=== PATIENT | male | born 1990 | race Caucasian/White ===

== ENCOUNTER 2022-01-19 21:10 | Emergency (ER) | payer MEDICAID ==
[~2022-01-19] VITALS: Ht 175.3 cm; Wt 65.8 kg
[2022-01-19 21:10] VITALS: BP 127/94
--- NOTE | 2022-01-19 21:10 | NUR ---
PT DEE BLS. TAKEN TO BED 5
--- NOTE | 2022-01-19 21:25 | NUR ---
PT'S BELONGINGS GATHERED AND COLLECTED BY GENIA.
--- NOTE | 2022-01-19 21:30 | NUR ---
BELONGINGS REMOVED AND PT GOWNED. BED LOCK AND LOW, SIDE RAILS UP, URINAL AT BEDSIDE.
--- NOTE | 2022-01-19 21:54 | NUR ---
PT IS LAYING ON BED AND THREW A URINAL AT POLICE OFFICERS AT THE NURSING STATION. BEHAVIOR WAS UNPROVOKE. PT ASK WHY HE THREW A URINAL AT THE POLICE, PT STATED "JUST BECAUSE...W/ EXPLICIT LANGUAGE". PT WAS INFORMED THAT THE POLICE OFFICERS ARE NOT HERE FOR HIM. PT STATED "YES I KNOW". PT INSTRUCTED THAT THIS BEHAVIOR IS NOT ACCEPTABLE. PT THEN TOOK THE CHAIR BESIDE HIM AND STARTED LIFTING IT ABOVE HIS HEAD POSTURING TO HURT HIMSELF AND THE POLICE. CHAIR WAS REMOVED AND TABLE AT BEDSIDE. IMMEDIATE VICINITY IS CLEARED OF OBJECTS. BED LOCK AND LOW, WITH SIDE RAILS UP. WILL CONTINUE TO VISUALIZE PT.
--- NOTE | 2022-01-19 22:11 | NUR ---
Dr. Luciano examining patient.
--- NOTE | 2022-01-19 22:15 | NUR ---
SNACKS AND WATER PROVIDED TO PT.
--- NOTE | 2022-01-19 22:47 | NUR ---
JOANN AND NOVEL SWAB, AND BLOOD WORK DONE AND GIVEN TO STAMPING MACHINE OPERATOR.
--- NOTE | 2022-01-19 23:06 | NUR ---
PT GIVEN ANOTHER SANDWHICH AND SODA.
[2022-01-19 23:07] LABS: BASOPHILS # (AUTO) 0.1 K/uL (0.00-0.22); BASOPHILS % (AUTO) 0.8 % (0.0-2.0); EOSINOPHILS # (AUTO) 0.1 K/uL (0-0.4); EOSINOPHILS % (AUTO) 0.6 % (0.0-4.0); HEMATOCRIT 38.1 % (36-52); HEMOGLOBIN 12.8 g/dL (12.0-18.0); LYMPHOCYTES # (AUTO) 2.3 K/uL (2.0-11.5); LYMPHOCYTES % (AUTO) 25.9 % (20.5-51.1); MEAN CORPUSCULAR HEMOGLOBIN 31 pg (27-31); MEAN CORPUSCULAR HGB CONC 34 g/dL (33-37); MEAN CORPUSCULAR VOLUME 92.1 fL (80-94); MONOCYTES # (AUTO) 1.1 K/uL (0.8-1.0); MONOCYTES % (AUTO) 12.1 % (1.7-9.3); NEUTROPHILS # (AUTO) 5.4 K/uL (1.8-7.7); NEUTROPHILS % (AUTO) 60.6 % (42.2-75.2); PLATELET COUNT (AUTO) 168 K/uL (140-450); RED BLOOD CELL COUNT(AUTO) 4.13 MIL/uL (4.20-6.10); RED CELL DISTRIBUTION WIDTH 13.4 % (11.6-13.7); WHITE BLOOD COUNT (AUTO) 8.9 K/uL (4.8-10.8)
[2022-01-19 23:31] LABS: ALBUMIN 3.1 g/dL (3.4-5.0); ANION GAP 12.3 (8-16); ASPARTATE AMINOTRANSFERASE 23 U/L (15-37); CARBON DIOXIDE 27.2 mmol/L (21-32); CHLORIDE 105 mmol/L (98-107); CREATININE 0.9 mg/dL (0.6-1.3); GFR ARICAN-AMERICAN 126 mL/min (>90); GLUCOSE 136 mg/dL (74-106); POTASSIUM 3.5 mmol/L (3.5-5.1); SODIUM SERUM 141 mmol/L (136-145); TOTAL BILIRUBIN 0.3 mg/dL (0.0-1.0); UREA NITROGEN, BLOOD 25 mg/dL (7-18)
[2022-01-19 23:32] LABS: ACETAMINOPHEN < 0.5 ug/ml (10-30); SALICYLATE < 2.8 mg/dL (2.8-20.0)
--- NOTE | 2022-01-19 23:39 | NUR ---
SNACKS AND WATER GIVEN TO PT.
--- NOTE | 2022-01-20 00:10 | NUR ---
PT IS AWAKE. CALM AND COOPERATIVE. NO SIGN OF DISTRESS.
[2022-01-20 00:15] LABS: BARBITURATE, URINE NEGATIVE ng/ml (NEG <=200); BENZODIAZEPINE, URINE NEGATIVE ng/mL (NEG <=200); CANNABINOID, URINE POSITIVE ng/mL (NEG <=50); COCAINE, URINE POSITIVE ng/mL (NEG <=300); OPIATE, URINE NEGATIVE ng/mL (NEG <=2000); PHENCYCLIDINE SCREEN,URINE NEGATIVE ng/mL (NEG <=25)
--- NOTE | 2022-01-20 01:23 | NUR ---
PT AWAKE. SLIGHTLY ANXIOUS, COOPERATIVE. SNACKS AND DRINKS PROVIDED.
--- NOTE | 2022-01-20 02:34 | NUR ---
PT AWAKE. EATING. NO SIGN OF DISTRESS.
--- NOTE | 2022-01-20 03:05 | NUR ---
SLEEPING. CHEST RISE PRESENT. SIDE RAILS UP, BED LOCK AND LOW.
--- NOTE | 2022-01-20 07:12 | NUR ---
HANDOFF TO [facility]. PT IS AWAKE. COOPERATIVE. VSS.
--- NOTE | 2022-01-20 08:42 | NUR ---
pt eating second regular diet tray at this time. pt within view of nursing station, slightly restless.
--- NOTE | 2022-01-20 09:10 | NUR ---
pt speaking with telepsych md maritza brewster at this time
--- NOTE | 2022-01-20 09:26 | NUR ---
md salas verbal order to continue 5150 order as well as zyprexa 10mg im/po bid, depakote 5mg po bid, haldol im/po q 6 hours prn for agitation, benadryl 50mg im/po q 6 hours prn for agitation.
[2022-01-20] MEDS ORDERED: diphenhydrAMINE 50 MG/ML VIAL IM PRN (09:30)
[2022-01-20] MEDS ORDERED: HALOPERIDOL IM 5 MG/ML VIAL IM PRN (09:30)
[2022-01-20] MEDS ORDERED: HALOPERIDOL 5 MG TAB PO PRN (10:05)
--- NOTE | 2022-01-20 10:05 | NUR ---
PT PLACED ON 5150 HOLD FOR DTS. HOLD WRITTEN BY BOW MAKER GIFT WRAPPING, RICHARD JONES. [address]
[2022-01-20] MEDS ORDERED: diphenhydrAMINE 50 MG CAP PO PRN (10:10)
--- NOTE | 2022-01-20 10:28 | NUR ---
PT MEDICALLY CLEARED BY DR CHAVARRIA
--- NOTE | 2022-01-20 10:56 | NUR ---
security at bedside for ekg, pt was found touching self and refused to stop when asked.
[2022-01-20] MEDS ORDERED: LORazepam 2 MG/ML VIAL ONE (11:09)
[2022-01-20] MEDS ORDERED: LORazepam 2 MG/ML VIAL IM ONE ×2 (11:10→11:15)
--- NOTE | 2022-01-20 11:12 | NUR ---
PT BECAME VERY AGGRESSIVE WHEN SECURITY WAS AT BEDSIDE AND HIT BAGGAGE CLERK. PT MEDICATED PER MD ORDER. SECURITY, CO CHAIRMAN, MALE EVS WORKER AT BEDSIDE ASSISTING PRIMARY RN.
--- NOTE | 2022-01-20 11:25 | NUR ---
novel swabbed at this time and sent to lab
--- NOTE | 2022-01-20 11:59 | NUR ---
Patient appears to be resting comfortably in bed. Respirations even and unlabored.
--- NOTE | 2022-01-20 14:56 | NUR ---
linens changed at this time, pt does not wish to change into new underwear
--- NOTE | 2022-01-20 17:24 | NUR ---
Patient appears to be resting comfortably in bed. Vital Signs within normal limits. Respirations even and unlabored.
--- NOTE | 2022-01-20 18:46 | NUR ---
pt ambulated to bathroom with even and steady gait at this time. Patient appears to be resting comfortably in bed. Vital Signs within normal limits. Respirations even and unlabored.
--- NOTE | 2022-01-20 19:17 | NUR ---
Pt report given to zulay ndiaye. Transfer of care at this time.
--- NOTE | 2022-01-20 19:47 | NUR ---
PT ASLEEP RESTING ; COMFORTABLE. REPORT TAKEN FROM GEORGE JONES.
--- NOTE | 2022-01-20 20:18 | NUR ---
PT IS RESTING AND ASLEEP AND COMFORTABLE
[2022-01-20] MEDS ORDERED: OLANZapine 5 MG ODT PO SCH (21:00)
[2022-01-20] MEDS: DIVALPROEX 500 MG TABEC PO SCH (21:01)
[2022-01-20] MEDS: OLANZapine 5 MG TAB PO SCH (21:02)
--- NOTE | 2022-01-20 21:03 | NUR ---
2100 MEDS GIVEN AND TOLERATED. PT IN BED WITH SIDE RAILS UP. FOOD GIVEN TO PATIENT
--- NOTE | 2022-01-20 22:11 | NUR ---
PT RESTING ; IN BED ASLEEP. Q15 SI PRECAUTIONS BEING DONE.
--- NOTE | 2022-01-20 23:00 | NUR ---
PT RESTING ; ASLEEP. SIDE RAILS UP
--- NOTE | 2022-01-20 23:49 | NUR ---
[facility] CALLED AND ASKED FOR OTHER SIDE OF 5150 HOLD
--- NOTE | 2022-01-20 23:53 | NUR ---
EMERGENCY MEDICAL TO BE ARRANGED WHEN PATIENT IS AWAKE
--- NOTE | 2022-01-21 03:13 | NUR ---
PT AWAKE ; FOOD PROVIDED. PT IS CALM, RESTING IN BED WITH SIDE RAILS UP.
--- NOTE | 2022-01-21 05:23 | NUR ---
pt in bed resting; asleep bed side rails up. waiting on acceptance from facility
--- NOTE | 2022-01-21 05:35 | NUR ---
[facility] CALLED AND FACESHEET FAXED. TELEPSYCH SCHEDULED FOR 0900
--- NOTE | 2022-01-21 05:58 | NUR ---
telepsych to call @0900 this am. pt resting and asleep
--- NOTE | 2022-01-21 07:15 | NUR ---
RECEIVED BEDSIDE REPORT FROM JAMES BALL LVN FOR CONTINUITY OF CARE. PT ASLEEP IN R LATERAL POSITION, EYES CLOSED. NO S/S ACUTE DISTRESS AT THIS TIME. WILL CONTINUE TO CLOSELY MONITOR.
[2022-01-21] MEDS: DIVALPROEX 500 MG TABEC PO SCH ×2 (08:11→21:00)
[2022-01-21] MEDS: OLANZapine 5 MG TAB PO SCH ×2 (08:11→21:00)
--- NOTE | 2022-01-21 09:10 | NUR ---
PT BEING EVALUATED BY TELEPSYCH AT THIS TIME
--- NOTE | 2022-01-21 09:15 | NUR ---
PT BEING SEEN VIA TELEPSYCH BY PSYCHIATRIST.
--- NOTE | 2022-01-21 11:18 | NUR ---
[place] in ED - 01/21/22 at 1526 by NIYAH L AC 20G DISCONTINUED INDICATED. WILL CONTINUE TO MONITOR.
--- NOTE | 2022-01-21 13:00 | NUR ---
PT ASLEEP. NO S/S ACUTE DISTRESS AT THIS TIME. WILL CONTINUE TO CLOSELY MONITOR.
--- NOTE | 2022-01-21 15:00 | NUR ---
PT SLEEPING IN L LATERAL POSITION. RISPIRATIONS EVEN AND UNLABORED. WILL CONTINUE TO CLOSELY MONITOR.
--- NOTE | 2022-01-21 16:58 | NUR ---
PT AMBULATES TO RR.
--- NOTE | 2022-01-21 16:59 | NUR ---
SANDWICH PROVIDED PER PT REQUEST. SITTING QUIETLY ON BED IN ROOM, EATING. NO S/S ACUTE DISTRESS.
[2022-01-21] MEDS ORDERED: LORazepam 2 MG/ML VIAL IM ONE (18:15)
--- NOTE | 2022-01-21 19:24 | NUR ---
ENDORSED BEDSIDE REPORT TO GABRIELA NIGHT RN FOR CONTINUITY OF CARE.
--- NOTE | 2022-01-21 19:30 | NUR ---
Patient appears to be SLEEPING comfortabLE. Vital Signs within normal limits. Respirations even and unlabored.
--- NOTE | 2022-01-21 21:00 | NUR ---
DUE MEDICATIONS GIVEN, TOLERATED WELL.
--- NOTE | 2022-01-22 00:35 | NUR ---
WOKE UP ,HUNGRY, ASK FOR FOOD, SANDWICH WAS GIVEN WITH GOOD APPETITE.
--- NOTE | 2022-01-22 06:30 | NUR ---
patient sleeps well, vital sign with normal limits, up and about.
--- NOTE | 2022-01-22 07:25 | NUR ---
REPORT GIVEN TO TORREY JONES
--- NOTE | 2022-01-22 07:30 | NUR ---
RECEIVED REPORT FROM GABRIELA JONES FOR CONTINUITY OF CARE. PT LYING PRONE IN BED ASLEEP AT THIS TIME, NO S/S OF ACUTE DISTRESS NOTED. BED IN LOWEST POSITION, BED LOCKED, SIDE RAILS UP. WILL CONTINUE TO MONITOR
--- NOTE | 2022-01-22 07:30 | NUR ---
Note mukund in EDM - 01/22/22 at 0741 by BLAINE RECIEVED REPORT FROM GABRIELA JONES FOR CONTINUITY OF CARE. PT A/OX4, PERJASWINDER, BED IN LOWEST POSITION, LOCKED, FATHER AT BEDSIDE. EATING AT THIS TIME. ABLE TO MAKE ALL NEEDS KNOWN. NO S/S OF ACUTE DISTRESS AT THIS TIME
--- NOTE | 2022-01-22 07:44 | NUR ---
PER DR. JORDAN PT NOT TO BE TELEPSYCHED AGAIN, WAITING FOR IN PSYCH PLACEMENT.
--- NOTE | 2022-01-22 08:20 | NUR ---
PT SITTING UPRIGHT IN BED COMPLETING MEAL AT THIS TIME. A/OX4, NO S/S OF DISTRESS NOTED.
--- NOTE | 2022-01-22 08:34 | NUR ---
IN BED ASLEEP AT THIS TIME
--- NOTE | 2022-01-22 09:29 | NUR ---
REQUESTED FOR MORE FOOD. PROVIDED 2 JELLO
[2022-01-22] MEDS: OLANZapine 5 MG TAB PO SCH ×2 (09:58→21:39)
[2022-01-22] MEDS: DIVALPROEX 500 MG TABEC PO SCH ×2 (09:59→21:39)
--- NOTE | 2022-01-22 12:05 | NUR ---
IN BED ASLEEP FACEDOWN
--- NOTE | 2022-01-22 12:16 | NUR ---
PT ATE LUNCH AND WENT BACK TO SLEEP
--- NOTE | 2022-01-22 15:45 | NUR ---
Called to [facility] and spoke with ER admitting. Received updated coverage. Intake information has been faxed to the following facilities for review for placement. [facility]/ [facility]/ [facility]/ [facility]/ [facility]....Will keep facility informed of any updates
--- NOTE | 2022-01-22 16:32 | NUR ---
PATIENT PACING BACK AND FORTH AROUND BED EATING SNACKS AT THIS TIME.
--- NOTE | 2022-01-22 17:32 | NUR ---
PT GIVEN SNACKS, AMBULATING AT BEDSIDE
--- NOTE | 2022-01-22 17:36 | NUR ---
PATIENT AMBULATED TO RESTROOM WITH STEADY/EVEN GAIT.
--- NOTE | 2022-01-22 17:42 | NUR ---
PT NOTED PACING BACK AND FORTH IN BED, INCREASED AGITATION NOTED, REORIENTED TO REALITY, GIVEN PRN MEDICATION AND SNACKS.
[2022-01-22] MEDS ORDERED: NICOTINE TRANSD SYS 14 MG/24 HR PATCH TD ONE (17:56)
--- NOTE | 2022-01-22 18:00 | NUR ---
PT PACING & REQUESTS A CIGGARETTE & SHOWER. [place] PATCH WAS GIVEN.
--- NOTE | 2022-01-22 18:14 | NUR ---
PT SHOWERED AND IS NOW EATING DINNER
--- NOTE | 2022-01-22 18:43 | NUR ---
PT IS DRAWING WITH WHITE PAPER AND HIGHLIGHTERS
--- NOTE | 2022-01-22 19:22 | NUR ---
Report and transfer of care endorsed to KAREN Cuevas.
--- NOTE | 2022-01-22 19:23 | NUR ---
REPORT RECEIVED FROM KAREN HIRSCH. CONTINUITY OF PT CARE AT THIS TIME.
--- NOTE | 2022-01-22 19:33 | NUR ---
PT LAYING IN BED IN R LATERAL POSITION W BLANKET ON. PT DENIES ANY PAIN AT THIS TIME OR OTHER SYMPTOMS. PT CONTINUES TO VERBALIZE SI OF KILLING SELF BY CHOCKING SELF W A ROPE. DENIES VISUAL HALLUCINATIONS, REPORTS HEARING VOICES BUT DOES NOT UNDERSTAND WHAT THEY ARE SAYING. PT APPEARS CALM, BREATHING EVEN AND UNLABORED. VSS. SAFETY PRECAUTIONS IN PLACE. WILL CONTINUE TO MONITOR.
--- NOTE | 2022-01-22 20:38 | NUR ---
[facility] PROVIDED [employer]ET[employer].
--- NOTE | 2022-01-22 21:36 | NUR ---
UPON DRAWING DIVALOPREX 500 TAB FROM [employer], MEDICATION TAB CONTAINER WAS EMPTY W/O TAB INSIDE. CHARGE NURSE GABRIELA MADE AWARE. NEW TAB DRAWN.
--- NOTE | 2022-01-22 23:48 | NUR ---
PT APPEARS TO BE RESTING W EYES CLOSED IN PRONE POSITION. +CHEST RISE AND FALL. WILL CONTINUE TO MONITOR .
--- NOTE | 2022-01-23 00:48 | NUR ---
PT AMBULATED TO BATHROOM WITHOUT ASSISTANCE
--- NOTE | 2022-01-23 00:52 | NUR ---
PT MARCING CELESTE. PT PROVIDED [employer] PRIETO.
--- NOTE | 2022-01-23 01:24 | NUR ---
PT APPEARS TO BE RESTING W EYES CLOSED IN R LATERAL POSITION. +CHEST RISE AND FALL. WILL CONTINUE TO MONITOR .
--- NOTE | 2022-01-23 02:44 | NUR ---
PT PROVIDED [employer] PRIETO AND JUICE.
--- NOTE | 2022-01-23 04:27 | NUR ---
Pt report given to teresa estes. Transfer of care at this time.
--- NOTE | 2022-01-23 06:00 | NUR ---
Patient appears to be resting comfortably in bed. Vital Signs within normal limits. Respirations even and unlabored.
--- NOTE | 2022-01-23 07:15 | NUR ---
REPORT GIVEN TO DONAVAN JONES
--- NOTE | 2022-01-23 07:20 | NUR ---
RECEIVED REPORT FROM GABRIELA JONES, FOR CONTINUITY OF CARE. RECEIVED PT LYING ON THEIR SIDE IN BED ASLEEP, BED IN LOWEST POSITION, SIDERAILS RAISED, BED LOCKED . RESPIRATIONS EVEN AND UNLABORED, NO S/S OF ACUTE DISTRESS NOTED
--- NOTE | 2022-01-23 08:10 | NUR ---
PT AMBULATED TO RESTROOM WITH STEADY GAIT.
--- NOTE | 2022-01-23 08:12 | NUR ---
PT PROVIDED WITH BREAKFAST TRAY
--- NOTE | 2022-01-23 08:19 | NUR ---
PT COMPLETED 100% OF BREAKFAST TRAY
[2022-01-23] MEDS ORDERED: NICOTINE TRANSD SYS 14 MG/24 HR PATCH TD SCH (09:00)
--- NOTE | 2022-01-23 09:20 | NUR ---
DR CALIX SPOKE WITH PT VIA TELEPSYCH IPAD FOR EVAL.
[2022-01-23] MEDS: OLANZapine 5 MG TAB PO SCH (09:22)
[2022-01-23] MEDS: DIVALPROEX 500 MG TABEC PO SCH (09:22)
--- NOTE | 2022-01-23 09:27 | NUR ---
PT GIVEN SNACKS
--- NOTE | 2022-01-23 10:28 | NUR ---
AMBULATE TO BATHROOM WITH STEADY GAIT
[2022-01-23] MEDS ORDERED: DIVA250E1 PO (10:31)
[2022-01-23] MEDS ORDERED: OLAN10TA1 PO (10:31)
--- NOTE | 2022-01-23 10:40 | NUR ---
Patient given written and verbal discharge instructions and verbalizes understanding. Given copies of tests performed during visit. Patient is awake, alert and oriented. Ambulatory with steady gait. Refuses offer of intermediate placement. Given list of available shelters in surrounding areas. GIVEN BUS PASS AND MENTAL HEALTH PACKET. OFFERED FOOD, ATE AT BEDSIDE. RX OF DIVALPROEX AND OLANZAPINE, VERBALIZED UNDERSTANDING.
[2022-01-23 10:41] VITALS: BP 122/83
== END 2022-01-23 10:41 | disposition home or self-care (01) ==
LOC: MED 21:10
DX: R45.851 Suicidal ideations (principal); Z20.822 Contact with and (suspected) exposure to COVID-19; F15.10 Other stimulant abuse, uncomplicated; F14.10 Cocaine abuse, uncomplicated; F12.10 Cannabis abuse, uncomplicated; E83.51 Hypocalcemia; F31.9 Bipolar disorder, unspecified; R00.0 Tachycardia, unspecified; F23 Brief psychotic disorder; I10 Essential (primary) hypertension; F17.200 Nicotine dependence, unspecified, uncomplicated
CPT/HCPCS: 36415; 80053; 80305; 85025; 87426; 93005; 96372; 99285; G0480; G0482; J1200; J1630; J2060; U0003